=== PATIENT | female | born 1965 | race Caucasian/White ===

== ENCOUNTER 2017-05-18 06:42 | Day surgery (SDC) | payer MEDICAID ==
[2017-05-18 07:40] LABS: HEMOGLOBIN 15.1 g/dL (12-16); MCHC 34.3 g/dL (31.0-37.0); MCV 87.3 fL (80.0-100.0); MEAN PLATELET VOLUME 9.8 fL (7.4-10.4); RBC 5.04 10x6/uL (4.00-5.40); RDW 12.5 % (11.5-14.5)
[2017-05-18 07:53] LABS: CALC OSMOLALITY 288 mosm/kg (275-300); CALCIUM 9.8 mg/dL (8.5-10.1); CARBON DIOXIDE 26.1 mmol/L (21.0-32.0); CHLORIDE - SERUM 104 mmol/L (98-107); CREATININE - SERUM 0.8 mg/dL (0.6-1.3); GLUCOSE 210 mg/dL (74-106); POTASSIUM - SERUM 3.7 mmol/L (3.5-5.1); SODIUM 142 mmol/L (136-145); UREA NITROGEN 13 mg/dL (7-18); eGFR NON AFRICAN AMERICAN 80 mL/min (90-120)
[2017-05-18] MEDS ORDERED: TOUJEO SOL300 UNIT/1 SC (09:23)
[2017-05-18] MEDS ORDERED: LISINOPRIL-HCTZ1 T13 PO (09:25)
[2017-05-18] MEDS ORDERED: GLUCOPHAGE1000 MG PO (09:25)
[2017-05-18] MEDS ORDERED: VALIUM5 MG PO (09:26)
[2017-05-18] MEDS ORDERED: HYDROCODONE-APA1 TAB PO (09:26)
[2017-05-18] MEDS ORDERED: BAYER CHEWABLE81 MG PO (09:27)
[2017-05-18] MEDS ORDERED: IBUPROFEN800 MG PO (09:27)
[2017-05-18] MEDS ORDERED: PHENERGAN25 M1 PO (09:27)
[2017-05-18] MEDS ORDERED: OMEPRAZOLE20 M1 PO (09:28)
[2017-05-18] MEDS ORDERED: MULTIPLE VITAMI1 TA1 PO (09:28)
[2017-05-18 09:29] VITALS: BP 140/85; BMI 28.1
[2017-05-18] MEDS ORDERED: OXYCODONE HCL5 MG PO (11:10)
== END 2017-05-18 14:14 | disposition home or self-care (01) ==
LOC: D.OPS 06:42 → D.PAN 09:15 → D.OPS 09:15
PROVIDERS: Anesthesiology
DX: K81.1 Chronic cholecystitis (principal); K82.8 Other specified diseases of gallbladder; I10 Essential (primary) hypertension; E11.9 Type 2 diabetes mellitus without complications; Z01.812 Encounter for preprocedural laboratory examination

== ENCOUNTER → 2020-02-13 18:10 | Outpatient (CLI) | payer MEDICAID ==
[~2020-02-13 18:10] MED LIST: BAYER CHEWABLE81 MG PO; GLUCOPHAGE1000 MG PO; HYDROCODONE-APA1 TAB PO; IBUPROFEN800 MG PO; LISINOPRIL-HCTZ1 T13 PO; MULTIPLE VITAMI1 TA1 PO; OMEPRAZOLE20 M1 PO; OXYCODONE HCL5 MG PO; PHENERGAN25 M1 PO; TOUJEO SOL300 UNIT/1 SC; VALIUM5 MG PO
== END | disposition home or self-care (01) ==
LOC: D.LABREF 18:10
PROVIDERS: ATTEND Podiatrist Foot & Ankle Surgery
DX: B07.0 Plantar wart (principal)

== ENCOUNTER → 2020-04-30 17:38 | Outpatient (CLI) | payer MEDICAID | END | disposition home or self-care (01) | LOC: D.LABREF 17:38 | PROVIDERS: ATTEND Podiatrist Foot & Ankle Surgery | DX: L03.116 Cellulitis of left lower limb (principal) ==

== ENCOUNTER 2020-05-11 17:16 | Inpatient (IN) | payer MEDICARE ==
[~2020-05-11] VITALS: Ht 165.1 cm; Wt 77.1 kg
--- NOTE | 2020-05-11 17:20 | NUR ---
ALERT AND ORIENTED X4. DRESSINGS INTACT TO BILAT FEET. DENIES ANY PAIN OR DISCOMFORT AT THIS TIME. ENCOURAGED TO USE CALL LIGHT FOR ASSSIT
[2020-05-11 17:50] VITALS: BP 130/70; BMI 28.3
--- NOTE | 2020-05-11 19:10 | NUR ---
RECEIVED REPORT, DR BENITO AT BEDSIDE DOING THE DRESSING CHANGES, IV TO LEFT FOREARM PLACED ONE STICK, BED LOWEST POSITION, DENIES NEEDS, CALL LIGHT IN REACH, A&OX4
[2020-05-11 20:00] VITALS: BP 108/56
--- NOTE | 2020-05-11 23:55 | NUR ---
I have reviewed this patient and I concur with the Shift Assessment completed by the Licensed Practical Nurse today this shift.
[2020-05-12 04:00] VITALS: BP 118/55
[2020-05-12 05:19] LABS: BASOPHILS 0.1 % (0-2); EOSINOPHILS 3.1 % (0-7); HEMOGLOBIN 11.8 g/dL (12-16); IMMATURE GRANULOCYTES 0.1 % (0-5); LYMPHOCYTES 32.2 % (15-50); MCH 28.6 pg (26.0-34.0); MCHC 33.7 g/dL (31.0-37.0); MCV 84.7 fL (80.0-100.0); MEAN PLATELET VOLUME 9.1 fL (7.4-10.4); MONOCYTES 8.2 % (2-11); NEUTROPHILS 56.3 % (40-80); PLATELET COUNT 256 10x3/uL (130-400); RBC 4.13 10x6/uL (4.00-5.40); RDW 12.7 % (11.5-14.5); WBC 7.7 10x3/uL (4.8-10.8)
[2020-05-12 05:35] LABS: APTT 32.1 SECONDS (22.8-39.4); INR 1.02 (0.85-1.17); PROTIME 13.3 SECONDS (11.6-15.0)
[2020-05-12 05:41] LABS: ANION GAP 11.8 mmol/L (8-16); BILIRUBIN - TOTAL 0.2 mg/dL (0.2-1.3); CALCIUM 9.2 mg/dL (8.5-10.1); CARBON DIOXIDE 25.3 mmol/L (21.0-32.0); CREATININE - SERUM 1.1 mg/dL (0.6-1.3); MAGNESIUM - SERUM 1.7 mg/dL (1.8-2.4); POTASSIUM - SERUM 4.1 mmol/L (3.5-5.1); PROTEIN - SERUM 6.7 g/dL (6.4-8.2)
--- NOTE | 2020-05-12 08:00 | NUR ---
ALERT AND ORIENTED X4 DRESSINGS INTACT TO BLE. IV INTACT TO LUE S/L. DENIES ANY PAIN OR DISCOMFORT AND ENCOURAGED TO USE CALL LIGHT FOR ASSIT.
[2020-05-12 09:21] VITALS: BP 137/69
[2020-05-12 13:50] VITALS: Ht 165.1 cm; Wt 77.1 kg
[2020-05-12 14:25] VITALS: BP 155/73
--- NOTE | 2020-05-12 19:19 | NUR ---
RECEIVED REPORT, ASSUMED CARE, A&OX4, DENIES NEEDS, BED LOWEST POSITION, CALL LIGHT IN REACH, IV PATENT TO LFA PATENT INFUSING VANC AT THIS TIME, BREATHING EVEN UNLABORED
[2020-05-12 19:25] LABS: BILIRUBIN NEGATIVE (NEGATIVE); KETONE NEGATIVE (NEGATIVE); NITRITE NEGATIVE (NEGATIVE); UROBILINOGEN NORMAL mg/dL (< 2)
[2020-05-12 20:00] VITALS: BP 134/64
[2020-05-13] VITALS: BP 142/74
--- NOTE | 2020-05-13 03:00 | NUR ---
I have reviewed this patient and I concur with the Shift Assessment completed by the Licensed Practical Nurse today this shift.
[2020-05-13 04:00] VITALS: BP 134/76
[2020-05-13 06:51] LABS: BASOPHILS 0.4 % (0-2); EOSINOPHILS 3.1 % (0-7); HEMATOCRIT 37.1 % (36.0-48.0); HEMOGLOBIN 12.2 g/dL (12-16); IMMATURE GRANULOCYTES 0.1 % (0-5); LYMPHOCYTES 31.3 % (15-50); MCHC 32.9 g/dL (31.0-37.0); MCV 85.1 fL (80.0-100.0); MEAN PLATELET VOLUME 9.5 fL (7.4-10.4); NEUTROPHILS 56.1 % (40-80); PLATELET COUNT 262 10x3/uL (130-400); RBC 4.36 10x6/uL (4.00-5.40); RDW 12.8 % (11.5-14.5); WBC 6.8 10x3/uL (4.8-10.8)
[2020-05-13 07:04] LABS: CALCIUM 9.3 mg/dL (8.5-10.1); CARBON DIOXIDE 25.1 mmol/L (21.0-32.0); MAGNESIUM - SERUM 1.6 mg/dL (1.8-2.4); POTASSIUM - SERUM 4.1 mmol/L (3.5-5.1); VANCOMYCIN - TROUGH 12.7 ug/mL (10.0-20.0)
[2020-05-13 08:16] VITALS: BP 153/79
--- NOTE | 2020-05-13 09:00 | NUR ---
ALERT AND ORIENTED AND DENIES ANY APIN OR DISCOMFORT AT THIS TIME. DRESSINGS INTACT TO BLE WITH PEDAL PULSES NOTED. ENCOURAGED TO USE CALL LIGHT FOR ASSIST.LUNGS CTA WITH NO PERIPHERAL EDEMA NOTED.
[2020-05-13 12:36] VITALS: BP 169/77
[2020-05-13 16:43] VITALS: BP 141/99
[2020-05-13 20:00] VITALS: BP 116/77
--- NOTE | 2020-05-13 23:00 | NUR ---
REMOVED DRESSING AND PACKING ON LEFT GREAT TOE PER PHYSICIAN. EXPRESSED ONE SMALL DROP OF PUS FROM WOUND. CLEANED AND DRESSED WET TO DRY WITH BETADINE. REPORTED BACK TO DR. KEANE BY TEXT. NO OTHER NEEDS. WILL REASSESS AND CONTINUE TO MONITOR.
[2020-05-14] VITALS: BP 126/66
[2020-05-14 04:00] VITALS: BP 118/73
[2020-05-14 05:49] LABS: BASOPHILS 0.2 % (0-2); EOSINOPHILS 3.5 % (0-7); HEMATOCRIT 34.8 % (36.0-48.0); HEMOGLOBIN 11.5 g/dL (12-16); IMMATURE GRANULOCYTES 0.2 % (0-5); LYMPHOCYTES 41.8 % (15-50); MCV 84.9 fL (80.0-100.0); MEAN PLATELET VOLUME 9.3 fL (7.4-10.4); MONOCYTES 9.3 % (2-11); PLATELET COUNT 271 10x3/uL (130-400); RDW 12.8 % (11.5-14.5); WBC 5.7 10x3/uL (4.8-10.8)
[2020-05-14 06:02] LABS: ANION GAP 12.1 mmol/L (8-16); CALCIUM 8.6 mg/dL (8.5-10.1); CARBON DIOXIDE 26.8 mmol/L (21.0-32.0); CREATININE - SERUM 0.9 mg/dL (0.6-1.3); MAGNESIUM - SERUM 1.6 mg/dL (1.8-2.4); POTASSIUM - SERUM 3.9 mmol/L (3.5-5.1)
[2020-05-14 08:44] VITALS: BP 134/82
--- NOTE | 2020-05-14 09:48 | NUR ---
ORDER RECEIVED FOR PICC PLACEMENT ON PATIENT FOR HOME [facility]. ON ARRIVAL, PICC DISCUSSED WITH PATIENT AND WRITTEN CONSENT OBTAINED. USING SITE RITE ULTRASOUND, LEFT UPPER ARM BASILIC VEIN IDENTIFIED. STERILE PREP, DRAPE AND 1%XYLOCAINE TO AREA. VEIN ACCESSED AND DOUBLE LUMEN PICC INSERTED TO 43 CM. GOOD TRACING WITH 3CG. GOOD BLOOD RETURN AND FLUSHES EASILY. SITE DRESSED WITH STATLOCK, BIOPTACH AND TEGADERM DRESSING PLACED. PATIENT TOLERATED WELL WITH LESS THAN 5 ML. PLACEDMENT VERIFIED USING 3CG WITH RYTHM STRIP PLACED IN CHART .
--- NOTE | 2020-05-14 10:11 | NUR ---
PATIENT SITTING UP IN BED, NO S/SX OF DISTRESS, PT DRESSING CHANGED ON BOTH FEET THIS MORNING BY DR KEANE. IV CHANGED TO PICC IN LEFT UPPER ARM. NO NEEDS VOICED, CONTINUE WITH PLAN OF CARE
--- NOTE | 2020-05-14 10:40 | NUR ---
PT MAG IS 1.6, PER PROTOCOL, REPLETE MAG. ADMINISTERED 400MG OF MAG OX REDRAW WITH MORNING LABS
[2020-05-14 12:41] VITALS: BP 140/77
--- NOTE | 2020-05-14 14:24 | MORECARE ---
CASE MANAGEMENT DISCHARGE SUMMARY PATIENT: CATARINO FINN UNIT: [id number] ADM DATE: 05/11/20 AGE: 54 : 63 SEX: F ROOM/BED: D.2220 AUTHOR: DEVAN JAIN PHYSICIAN: REFERRING PHYSICIAN: GIACOMO KEANE DPM DATE OF SERVICE: 05/14/20 Discharge Plan Patient Name: CATARINO FINN Facility: [facility]:[place] : 1965 Planned Disposition: Home with Home Health Anticipated Discharge Date: Discharge Date: Expected LOS: Initial Reviewer: [email or web address] Initial Review Date: 05/11/2020 Generated: 05/14/20 3:23 pm Comments DCP- Discharge Planning Updated by [id number]: Jyoti Hernandez on 05/14/20 1:[address] Patient Name: CATARINO FINN Admission Status: Elective Accout number: [id number] Admission Date: 05-11-2020 : 1965 Admission Diagnosis: Attending: GIACOMO KEANE Current LOS: 3 Anticipated DC Date: Planned Disposition: Home with Home Health Primary Insurance: MEDICARE A & B Discharge Planning Comments: CM met with patient to complete initial dc planning assessment. CM educated patient on the CM role and verbal consent given by patient to complete assessment. Patient lives at home with her spouse where she is independent with her care. At discharge patient plans to return home and feels this is a safe discharge. Her sister Franny will be her truck driver heavy home. CM discussed availability of home health, rehab services, and medical equipment. She is current with [facility] in [place]. I called to let them know that she will be discharging with IV abx and will need to be start of care on THU. I spoke with Ila. Patient has a wheelchair and a shower chair at home. IDANIA signed. Patient denied known discharge needs at this time. CM will continue to follow and will assist as needed with dc plans/needs. Counter Control Operator: Jyoti Hernandez DCPIA - Discharge Planning Initial Assessment Updated by [id number]: Jyoti Hernandez on 05/14/20 2:19 pm * Is the patient Alert and Oriented? Yes * How many steps to enter\exit or inside your home? * PCP DR CASTILLO * Pharmacy [facility] * Preadmission Environment Home with Family * ADLs Independent * Equipment Rolling Walker Shower Chair Wheelchair * List name and contact numbers for known caregivers / representatives who currently or will assist patient after discharge: WILSON ( SPOUSE ) [phone] FRANNY FRANCO ( SISTER) [phone] * Verbal permission to speak to the caregivers and representatives has been obtained from the patient. N/A * Community resources currently utilized Home Health * Please name any agencies selected above. [employer] [facility] IN [place] * Additional services required to return to the preadmission environment? Yes * Can the patient safely return to the preadmission environment? Yes * Has this patient been hospitalized within the prior 30 days at any hospital? No Coverage Notice Reviewer: [id number] Florentino Hernandez Notice Issued Date-Time: 05/14/2020 14:10 Notice Type: Patient Choice Letter Notice Delivered To: Patient Relationship to Patient: Playground Monitor Name: Delivery Method: HAND - Hand Delivered Aneta Days: Prior Verbal Notification: Recipient Understood Notice: Yes Recipient Signature: Yes Med Rec Note Co-signed by Attending: Coverage Notice Comment: current with [facility] Patient Name: CATARINO FINN Page [id number] at 1424 All edits/amendments must be made on the electronic document DICTATION DATE: 05/14/201423 PHARMACY SPECIALIST: SENIA 05/14/201423 RPT#: [id number] DC DATE: STATUS: ADM IN [facility] [address] [place] [address] END OF REPORT
[2020-05-14 16:21] VITALS: BP 162/84
[2020-05-14 20:00] VITALS: BP 138/75
[2020-05-15] VITALS: BP 148/77
[2020-05-15 04:00] VITALS: BP 161/76
--- NOTE | 2020-05-15 06:34 | MORECARE ---
CASE MANAGEMENT DISCHARGE SUMMARY PATIENT: CATARINO FINN UNIT: [id number] ADM DATE: 05/11/20 AGE: 54 : 63 SEX: F ROOM/BED: D.2220 AUTHOR: DEVAN JAIN PHYSICIAN: REFERRING PHYSICIAN: GIACOMO KEANE DPM DATE OF SERVICE: 05/15/20 Discharge Plan Patient Name: CATARINO FINN Facility: [facility]:[place] : 1965 Planned Disposition: Home with Home Health Anticipated Discharge Date: Discharge Date: Expected LOS: Initial Reviewer: [email or web address] Initial Review Date: 05/11/2020 Generated: 05/15/20 7:34 am Comments DCP- Discharge Planning Updated by [email or web address]: Jyoti Hernandez on 05/14/20 1:[address] Patient Name: CATARINO FINN Admission Status: Elective Accout number: [id number] Admission Date: 05-11-2020 : 1965 Admission Diagnosis: Attending: GIACOMO KEANE Current LOS: 3 Anticipated DC Date: Planned Disposition: Home with Home Health Primary Insurance: MEDICARE A & B Discharge Planning Comments: CM met with patient to complete initial dc planning assessment. CM educated patient on the CM role and verbal consent given by patient to complete assessment. Patient lives at home with her spouse where she is independent with her care. At discharge patient plans to return home and feels this is a safe discharge. Her sister Franny will be her hack driver home. CM discussed availability of home health, rehab services, and medical equipment. She is current with [facility] in [place]. I called to let them know that she will be discharging with IV abx and will need to be start of care on THU. I spoke with Ila. Patient has a wheelchair and a shower chair at home. IDANIA signed. Patient denied known discharge needs at this time. CM will continue to follow and will assist as needed with dc plans/needs. Photo Studio Assistant: Jyoti Hernandez DCPIA - Discharge Planning Initial Assessment Updated by [id number]: Jyoti Hernandez on 05/14/20 2:19 pm * Is the patient Alert and Oriented? Yes * How many steps to enter\exit or inside your home? * PCP DR CASTILLO * Pharmacy [facility] * Preadmission Environment Home with Family * ADLs Independent * Equipment Rolling Walker Shower Chair Wheelchair * List name and contact numbers for known caregivers / representatives who currently or will assist patient after discharge: WILSON ( SPOUSE ) [phone] FRANNY FRANCO ( SISTER) [phone] * Verbal permission to speak to the caregivers and representatives has been obtained from the patient. N/A * Community resources currently utilized Home Health * Please name any agencies selected above. [facility] IN [place] * Additional services required to return to the preadmission environment? Yes * Can the patient safely return to the preadmission environment? Yes * Has this patient been hospitalized within the prior 30 days at any hospital? No External Providers External Provider: [facility] Next Contact Date: Service Request Date: Service Type: Resolution: Reviewer: Comments: Coverage Notice Reviewer: [id number] Florentino Hernandez Notice Issued Date-Time: 05/14/2020 14:10 Notice Type: Patient Choice Letter Notice Delivered To: Patient Relationship to Patient: Environmental Engineer Scientist Name: Delivery Method: HAND - Hand Delivered Aneta Days: Prior Verbal Notification: Recipient Understood Notice: Yes Recipient Signature: Yes Med Rec Note Co-signed by Attending: Coverage Notice Comment: current with [facility] Last DP export: 05/14/20 1:24 Patient Name: CATARINO FINN Page [phone] at 0634 All edits/amendments must be made on the electronic document DICTATION DATE: 05/15/20633 JET DYEING MACHINE TENDER: SENIA 05/15/20633 RPT#: [id number] DC DATE: STATUS: ADM IN [facility] [address] [place] [address] END OF REPORT
--- NOTE | 2020-05-15 07:50 | NUR ---
0700 BEDSIDE REPORT RECEIVED AWAKE ALERT IN BED LEFT FOOT DRESSING INTACT
[2020-05-15 08:22] VITALS: BP 156/88
--- NOTE | 2020-05-15 08:51 | MORECARE ---
CASE MANAGEMENT DISCHARGE SUMMARY PATIENT: CATARINO FINN UNIT: [id number] ADM DATE: 05/11/20 AGE: 54 : 63 SEX: F ROOM/BED: D.2220 AUTHOR: DEVAN JAIN PHYSICIAN: REFERRING PHYSICIAN: GIACOMO KEANE DPM DATE OF SERVICE: 05/15/20 Discharge Plan Patient Name: CATARINO FINN Facility: [facility]:[place] : 1965 Planned Disposition: Home with Home Health Anticipated Discharge Date: Discharge Date: Expected LOS: Initial Reviewer: [email or web address] Initial Review Date: 05/11/2020 Generated: 05/15/20 9:50 am Comments DCP- Discharge Planning Updated by [id number]: Jyoti Hernandez on 05/14/20 1:[address] Patient Name: CATARINO FINN Admission Status: Elective Accout number: [id number] Admission Date: 05-11-2020 : 1965 Admission Diagnosis: Attending: GIACOMO KEANE Current LOS: 3 Anticipated DC Date: Planned Disposition: Home with Home Health Primary Insurance: MEDICARE A & B Discharge Planning Comments: CM met with patient to complete initial dc planning assessment. CM educated patient on the CM role and verbal consent given by patient to complete assessment. Patient lives at home with her spouse where she is independent with her care. At discharge patient plans to return home and feels this is a safe discharge. Her sister Franny will be her intermodal truck driver home. CM discussed availability of home health, rehab services, and medical equipment. She is current with [facility] in [place]. I called to let them know that she will be discharging with IV abx and will need to be start of care on THU. I spoke with Ila. Patient has a wheelchair and a shower chair at home. IDANIA signed. Patient denied known discharge needs at this time. CM will continue to follow and will assist as needed with dc plans/needs. Contact Representative: Jyoti Hernandez DCPIA - Discharge Planning Initial Assessment Updated by [id number]: Jyoti Hernandez on 05/14/20 2:19 pm * Is the patient Alert and Oriented? Yes * How many steps to enter\exit or inside your home? * PCP DR CASTILLO * Pharmacy [facility] * Preadmission Environment Home with Family * ADLs Independent * Equipment Rolling Walker Shower Chair Wheelchair * List name and contact numbers for known caregivers / representatives who currently or will assist patient after discharge: WILSON ( SPOUSE ) [phone] FRANNY FRANCO ( SISTER) [phone] * Verbal permission to speak to the caregivers and representatives has been obtained from the patient. N/A * Community resources currently utilized Home Health * Please name any agencies selected above. [email or web address] [facility] IN [place] * Additional services required to return to the preadmission environment? Yes * Can the patient safely return to the preadmission environment? Yes * Has this patient been hospitalized within the prior 30 days at any hospital? No External Providers External Provider: [facility] Next Contact Date: Service Request Date: Service Type: Resolution: Reviewer: Comments: Coverage Notice Reviewer: [id number] Florentino Hernandez Notice Issued Date-Time: 05/14/2020 14:10 Notice Type: Patient Choice Letter Notice Delivered To: Patient Relationship to Patient: Fixing Machine Operator Name: Delivery Method: HAND - Hand Delivered Aneta Days: Prior Verbal Notification: Recipient Understood Notice: Yes Recipient Signature: Yes Med Rec Note Co-signed by Attending: Coverage Notice Comment: current with [facility] DP export: 05/15/20 5:35 Patient Name: CATARINO FINN Page [phone] at 0851 All edits/amendments must be made on the electronic document DICTATION DATE: 05/15/20849 SECURITY AUDITOR: SENIA 05/15/2050 RPT#: [id number] DC DATE: STATUS: ADM IN [facility] [address] [place] [address] END OF REPORT
--- NOTE | 2020-05-15 09:01 | MORECARE ---
CASE MANAGEMENT DISCHARGE SUMMARY PATIENT: CATARINO FINN UNIT: [id number] ADM DATE: 05/11/20 AGE: 54 : 63 SEX: F ROOM/BED: D.2220 AUTHOR: SUSY,DOC PHYSICIAN: REFERRING PHYSICIAN: GIACOMO KEANE DPM DATE OF SERVICE: 05/15/20 Discharge Plan Patient Name: CATARINO FINN Facility: [facility]:[place] : 1965 Planned Disposition: Home with Home Health Anticipated Discharge Date: Discharge Date: Expected LOS: Initial Reviewer: [email or web address] Initial Review Date: 05/11/2020 Generated: 05/15/20 10:00 am Comments DCP- Discharge Planning Updated by [id number]: Jyoti Hernandez on 05/15/20 7:[address] [employer] [employer] CALLED AND STATED THAT THE COST WOULD BE $1729.32 FOR SUPPLIES THEY CAN FINANCE IT FOR 18 MONTHS FOR A COST OF $97.00 PER MONTH I HAVE SENT THIS TO [facility], I AM WAITING FOR THEIR SANTANA. IMM SERVED AND EXPLAINED I HAVE EXPLAINED. ALL OF THIS TO THE PATIENT DCP- Discharge Planning Updated by [email or web address]: Jyoti Hernandez on 05/14/20 1:[address] Patient Name: CATARINO FINN Admission Status: Elective Accout number: [id number] Admission Date: 05-11-2020 : 1965 Admission Diagnosis: Attending: GIACOMO KEANE Current LOS: 3 Anticipated DC Date: Planned Disposition: Home with Home Health Primary Insurance: MEDICARE A & B Discharge Planning Comments: CM met with patient to complete initial dc planning assessment. CM educated patient on the CM role and verbal consent given by patient to complete assessment. Patient lives at home with her spouse where she is independent with her care. At discharge patient plans to return home and feels this is a safe discharge. Her sister Franny will be her team driver home. CM discussed availability of home health, rehab services, and medical equipment. She is current with [facility] in [place]. I called to let them know that she will be discharging with IV abx and will need to be start of care on THU. I spoke with Ila. Patient has a wheelchair and a shower chair at home. IDANIA signed. Patient denied known discharge needs at this time. CM will continue to follow and will assist as needed with dc plans/needs. Team Driver: Jyoti Hernandez DCPIA - Discharge Planning Initial Assessment Updated by [email or web address]: Jyoti Hernandez on 05/14/20 2:19 pm * Is the patient Alert and Oriented? Yes * How many steps to enter\exit or inside your home? * PCP DR CASTILLO * Pharmacy [facility] * Preadmission Environment Home with Family * ADLs Independent * Equipment Rolling Walker Shower Chair Wheelchair * List name and contact numbers for known caregivers / representatives who currently or will assist patient after discharge: WILSON ( SPOUSE ) [phone] FRANNY FRANCO ( SISTER) [phone] * Verbal permission to speak to the caregivers and representatives has been obtained from the patient. N/A * Community resources currently utilized Home Health * Please name any agencies selected above. [employer] [facility] IN [place] * Additional services required to return to the preadmission environment? Yes * Can the patient safely return to the preadmission environment? Yes * Has this patient been hospitalized within the prior 30 days at any hospital? No Coverage Notice Reviewer: [id number] Florentino Hernandez Notice Issued Date-Time: 05/14/2020 14:10 Notice Type: Patient Choice Letter Notice Delivered To: Patient Relationship to Patient: Community Living Coach Name: Delivery Method: HAND - Hand Delivered Aneta Days: Prior Verbal Notification: Recipient Understood Notice: Yes Recipient Signature: Yes Med Rec Note Co-signed by Attending: Coverage Notice Comment: current with [facility] Reviewer: [id number] Florentino Hernandez Notice Issued Date-Time: 05/15/2020 8:50 Notice Type: IM Discharge Notice Notice Delivered To: Patient Relationship to Patient: Community Living Coach Name: Delivery Method: HAND - Hand Delivered Aneta Days: Prior Verbal Notification: Recipient Understood Notice: Yes Recipient Signature: Yes Med Rec Note Co-signed by Attending: Coverage Notice Comment: IMM SERVED Last DP export: 05/15/20 7:51 Patient Name: CATARINO FINN Page 45711 at 0901 All edits/amendments must be made on the electronic document DICTATION DATE: 05/15/20 0900 CHAIN OFFBEARER: DM 05/15/20899 RPT#: [id number] DC DATE: STATUS: ADM IN [facility] [address] [place] [address] END OF REPORT
[2020-05-15 10:20] LABS: HEMATOCRIT 38.1 % (36.0-48.0); HEMOGLOBIN 12.9 g/dL (12-16); MCHC 33.9 g/dL (31.0-37.0); MCV 85.6 fL (80.0-100.0); MEAN PLATELET VOLUME 8.9 fL (7.4-10.4); NEUTROPHILS 60.6 % (40-80); PLATELET COUNT 276 10x3/uL (130-400); RBC 4.45 10x6/uL (4.00-5.40); WBC 6.3 10x3/uL (4.8-10.8)
[2020-05-15 10:36] LABS: ANION GAP 11.1 mmol/L (8-16); CALCIUM 9.5 mg/dL (8.5-10.1); CARBON DIOXIDE 28.9 mmol/L (21.0-32.0); CREATININE - SERUM 1.1 mg/dL (0.6-1.3); MAGNESIUM - SERUM 1.7 mg/dL (1.8-2.4); VANCOMYCIN - TROUGH 34.1 ug/mL (10.0-20.0)
[2020-05-15 12:38] LABS: BASOPHILS 0.2 % (0-2); EOSINOPHILS 4.6 % (0-7)
[2020-05-15 12:46] VITALS: BP 164/94
--- NOTE | 2020-05-15 14:13 | MORECARE ---
CASE MANAGEMENT DISCHARGE SUMMARY PATIENT: CATARINO FINN UNIT: [id number] ADM DATE: 05/11/20 AGE: 54 : 63 SEX: F ROOM/BED: D.2220 AUTHOR: SUSY,DOC PHYSICIAN: REFERRING PHYSICIAN: GIACOMO KEANE DPM DATE OF SERVICE: 05/15/20 Discharge Plan Patient Name: CATARINO FNIN Facility: [facility]:[place] : 1965 Planned Disposition: Home with Home Health Anticipated Discharge Date: Discharge Date: Expected LOS: Initial Reviewer: [id number] Initial Review Date: 05/11/2020 Generated: 05/15/20 3:12 pm Comments DCP- Discharge Planning Updated by [email or web address]: Jyoti Hernandez on 05/15/20 7:[address] [employer] [employer] CALLED AND STATED THAT THE COST WOULD BE $1729.32 FOR SUPPLIES THEY CAN FINANCE IT FOR 18 MONTHS FOR A COST OF $97.00 PER MONTH I HAVE SENT THIS TO [facility], I AM WAITING FOR THEIR SANTANA. IMM SERVED AND EXPLAINED I HAVE EXPLAINED. ALL OF THIS TO THE PATIENT DCP- Discharge Planning Updated by [id number]: Jyoti Hernandez on 05/14/20 1:[address] Patient Name: CATARINO FINN Admission Status: Elective Accout number: [id number] Admission Date: 05-11-2020 : 1965 Admission Diagnosis: Attending: GIACOMO KEANE Current LOS: 3 Anticipated DC Date: Planned Disposition: Home with Home Health Primary Insurance: MEDICARE A & B Discharge Planning Comments: CM met with patient to complete initial dc planning assessment. CM educated patient on the CM role and verbal consent given by patient to complete assessment. Patient lives at home with her spouse where she is independent with her care. At discharge patient plans to return home and feels this is a safe discharge. Her sister Franny will be her otr tanker truck driver home. CM discussed availability of home health, rehab services, and medical equipment. She is current with [facility] in [place]. I called to let them know that she will be discharging with IV abx and will need to be start of care on THU. I spoke with Ila. Patient has a wheelchair and a shower chair at home. IDANIA signed. Patient denied known discharge needs at this time. CM will continue to follow and will assist as needed with dc plans/needs. Ammunition Assembly Laborer: Jyoti Hernandez DCPIA - Discharge Planning Initial Assessment Updated by [id number]: Jyoti Hernandez on 05/14/20 2:19 pm * Is the patient Alert and Oriented? Yes * How many steps to enter\exit or inside your home? * PCP DR CASTILLO * Pharmacy [facility] * Preadmission Environment Home with Family * ADLs Independent * Equipment Rolling Walker Shower Chair Wheelchair * List name and contact numbers for known caregivers / representatives who currently or will assist patient after discharge: WILSON ( SPOUSE ) [phone] FRANNY FRANCO ( SISTER) [phone] * Verbal permission to speak to the caregivers and representatives has been obtained from the patient. N/A * Community resources currently utilized Home Health * Please name any agencies selected above. [employer] [facility] IN [place] * Additional services required to return to the preadmission environment? Yes * Can the patient safely return to the preadmission environment? Yes * Has this patient been hospitalized within the prior 30 days at any hospital? No Coverage Notice Reviewer: [id number] Florentino Hernandez Notice Issued Date-Time: 05/14/2020 14:10 Notice Type: Patient Choice Letter Notice Delivered To: Patient Relationship to Patient: Temporary Data Entry Clerk Name: Delivery Method: HAND - Hand Delivered Aneta Days: Prior Verbal Notification: Recipient Understood Notice: Yes Recipient Signature: Yes Med Rec Note Co-signed by Attending: Coverage Notice Comment: current with [facility] Reviewer: [id number] Florentino Hernandez Notice Issued Date-Time: 05/15/2020 8:50 Notice Type: IM Discharge Notice Notice Delivered To: Patient Relationship to Patient: Temporary Data Entry Clerk Name: Delivery Method: HAND - Hand Delivered Aneta Days: Prior Verbal Notification: Recipient Understood Notice: Yes Recipient Signature: Yes Med Rec Note Co-signed by Attending: Coverage Notice Comment: IMM SERVED Last DP export: 05/15/20 8:01 Patient Name: CATARINO FINN Page [id number] at 1413 All edits/amendments must be made on the electronic document DICTATION DATE: 05/15/20 1412 WOOD GLUER: DM 05/15/20 141 RPT#: [id number] DC DATE: STATUS: ADM IN [facility] [address] [place] [address] END OF REPORT
--- NOTE | 2020-05-15 14:30 | MORECARE ---
CASE MANAGEMENT DISCHARGE SUMMARY PATIENT: CATARINO FINN UNIT: [id number] ADM DATE: 05/11/20 AGE: 54 : 63 SEX: F ROOM/BED: D.2220 AUTHOR: SUSY,DOC PHYSICIAN: REFERRING PHYSICIAN: GIACOMO KEANE DPM DATE OF SERVICE: 05/15/20 Discharge Plan Patient Name: CATARINO FINN Facility: [facility]:[place] : 1965 Planned Disposition: Home with Home Health Anticipated Discharge Date: Discharge Date: Expected LOS: Initial Reviewer: [email or web address] Initial Review Date: 05/11/2020 Generated: 05/15/20 3:29 pm Comments DCP- Discharge Planning Updated by [email or web address]: Jyoti Hernandez on 05/15/20 1:[address] I spoke with Ila at [facility] in [place] they will be there at 0930 tomorrow to start care. I will let patient know DCP- Discharge Planning Updated by [email or web address]: Jyoti Hernandez on 05/15/20 1:[address] I spoke with Kerrie Aviles again and they stated that they spoke with the industrial organization manager and they would do 1010.20 and do 15 month payment plan at $68.00 per month Padmini Avilez quoted me $3.60 per week for all of it. I questioned both Kerrie Aviles & Raghav on the scruggs difference both companies assure me they are correct. I have given my card to the patient and explained to her that she needed to call me if she received a bill larger that what she is quoted. Dr Keane also aware. Patient will get her last does today. Raghav will come and teach and [facility], then [facility] will do start of care tomorrow CM to follow and assist as needed DCP- Discharge Planning Updated by [id number]: Jyoti Hernandez on 05/15/20 7:[address] KERRIE AVILES CALLED AND STATED THAT THE COST WOULD BE $1729.32 FOR SUPPLIES THEY CAN FINANCE IT FOR 18 MONTHS FOR A COST OF $97.00 PER MONTH I HAVE SENT THIS TO [facility], I AM WAITING FOR THEIR SCRUGGS. IMM SERVED AND EXPLAINED I HAVE EXPLAINED. ALL OF THIS TO THE PATIENT DCP- Discharge Planning Updated by [email or web address]: Jyoti Hernandez on 05/14/20 1:[address] Patient Name: CATARINO FINN Admission Status: Elective Accout number: [id number] Admission Date: 05-11-2020 : 1965 Admission Diagnosis: Attending: GIACOMO KEANE Current LOS: 3 Anticipated DC Date: Planned Disposition: Home with Home Health Primary Insurance: MEDICARE A & B Discharge Planning Comments: CM met with patient to complete initial dc planning assessment. CM educated patient on the CM role and verbal consent given by patient to complete assessment. Patient lives at home with her spouse where she is independent with her care. At discharge patient plans to return home and feels this is a safe discharge. Her sister Franny will be her lifter driver home. CM discussed availability of home health, rehab services, and medical equipment. She is current with [facility] in [place]. I called to let them know that she will be discharging with IV abx and will need to be start of care on THU. I spoke with Ila. Patient has a wheelchair and a shower chair at home. IDANIA signed. Patient denied known discharge needs at this time. CM will continue to follow and will assist as needed with dc plans/needs. Funeral Location Manager: Jyoti Hernandez DCPIA - Discharge Planning Initial Assessment Updated by [id number]: Jyoti Hernandez on 05/14/20 2:19 pm * Is the patient Alert and Oriented? Yes * How many steps to enter\exit or inside your home? * PCP DR CASTILLO * Pharmacy [facility] * Preadmission Environment Home with Family * ADLs Independent * Equipment Rolling Walker Shower Chair Wheelchair * List name and contact numbers for known caregivers / representatives who currently or will assist patient after discharge: WILSON ( SPOUSE ) [phone] FRANNY FRANCO ( SISTER) [phone] * Verbal permission to speak to the caregivers and representatives has been obtained from the patient. N/A * Community resources currently utilized Home Health * Please name any agencies selected above. [facility] IN [place] * Additional services required to return to the preadmission environment? Yes * Can the patient safely return to the preadmission environment? Yes * Has this patient been hospitalized within the prior 30 days at any hospital? No Coverage Notice Reviewer: [id number] Florentino Hernandez Notice Issued Date-Time: 05/14/2020 14:10 Notice Type: Patient Choice Letter Notice Delivered To: Patient Relationship to Patient: Chiropractor Assistant Name: Delivery Method: HAND - Hand Delivered Aneta Days: Prior Verbal Notification: Recipient Understood Notice: Yes Recipient Signature: Yes Med Rec Note Co-signed by Attending: Coverage Notice Comment: current with [facility] Reviewer: [id number] Florentino Hernandez Notice Issued Date-Time: 05/15/2020 8:50 Notice Type: IM Discharge Notice Notice Delivered To: Patient Relationship to Patient: Chiropractor Assistant Name: Delivery Method: HAND - Hand Delivered Aneta Days: Prior Verbal Notification: Recipient Understood Notice: Yes Recipient Signature: Yes Med Rec Note Co-signed by Attending: Coverage Notice Comment: IMM SERVED Last DP export: 05/15/20 1:13 Patient Name: CATARINO FINN Page [id number] at 1430 All edits/amendments must be made on the electronic document DICTATION DATE: 05/15/201428 POULTRY PINNER: SENIA 05/15/20 142 RPT#: [id number] DC DATE: STATUS: ADM IN [facility] [address] [place] [address] END OF REPORT
--- NOTE | 2020-05-15 14:48 | MORECARE ---
CASE MANAGEMENT DISCHARGE SUMMARY PATIENT: CATARINO FINN UNIT: [id number] ADM DATE: 05/11/20 AGE: 54 : 63 SEX: F ROOM/BED: D.2220 AUTHOR: SUSY,DOC PHYSICIAN: REFERRING PHYSICIAN: GIACOMO KEANE DPM DATE OF SERVICE: 05/15/20 Discharge Plan Patient Name: CATARINO FINN Facility: [facility]:[place] : 1965 Planned Disposition: Home with Home Health Anticipated Discharge Date: Discharge Date: Expected LOS: Initial Reviewer: [email or web address] Initial Review Date: 05/11/2020 Generated: 05/15/20 3:47 pm Comments DCP- Discharge Planning Updated by [email or web address]: Jyoti Hernandez on 05/15/20 1:[address] I spoke with someone again about the scruggs and they did not include the supply cost. which is 15.00 per day. I explained to the patient and sister and the sister will cover the cost of that. I called Padmini Avilez to call the sister for a payment plan for the TOTAL COST of services. DCP- Discharge Planning Updated by [id number]: Jyoti Hernandez on 05/15/20 1:[address] I spoke with Ila at [facility] in [place] they will be there at 0930 tomorrow to start care. I will let patient know DCP- Discharge Planning Updated by [email or web address]: Jyoti Hernandez on 05/15/20 1:[address] I spoke with Kerrie Aviles again and they stated that they spoke with the state manager and they would do 1010.20 and do 15 month payment plan at $68.00 per month Padmini Avilez quoted me $3.60 per week for all of it. I questioned both Kerrie Aviles & Raghav on the scruggs difference both companies assure me they are correct. I have given my card to the patient and explained to her that she needed to call me if she received a bill larger that what she is quoted. Dr Keane also aware. Patient will get her last does today. Raghav will come and teach and deliver the meds to her home tonight, then Mag will do start of care tomorrow CM to follow and assist as needed DCP- Discharge Planning Updated by [id number]: yJoti Hernandez on 05/15/20 7:[address] KERRIE AVILES CALLED AND STATED THAT THE COST WOULD BE $1729.32 FOR SUPPLIES THEY CAN FINANCE IT FOR 18 MONTHS FOR A COST OF $97.00 PER MONTH I HAVE SENT THIS TO [facility], I AM WAITING FOR THEIR SCRUGGS. IMM SERVED AND EXPLAINED I HAVE EXPLAINED. ALL OF THIS TO THE PATIENT DCP- Discharge Planning Updated by [id number]: Jyoti Hernandez on 05/14/20 1:[address] Patient Name: CATARINO FINN Admission Status: Elective Accout number: [id number] Admission Date: 05-11-2020 : 1965 Admission Diagnosis: Attending: GIACOMO KEANE Current LOS: 3 Anticipated DC Date: Planned Disposition: Home with Home Health Primary Insurance: MEDICARE A & B Discharge Planning Comments: CM met with patient to complete initial dc planning assessment. CM educated patient on the CM role and verbal consent given by patient to complete assessment. Patient lives at home with her spouse where she is independent with her care. At discharge patient plans to return home and feels this is a safe discharge. Her sister Franny will be her locomotive driver home. CM discussed availability of home health, rehab services, and medical equipment. She is current with [facility] in [place]. I called to let them know that she will be discharging with IV abx and will need to be start of care on THU. I spoke with Ila. Patient has a wheelchair and a shower chair at home. IDANIA signed. Patient denied known discharge needs at this time. CM will continue to follow and will assist as needed with dc plans/needs. Supervisor Dog License Officer: Jyoti Hernandez DCPIA - Discharge Planning Initial Assessment Updated by [id number]: Jyoti Hernandez on 05/14/20 2:19 pm * Is the patient Alert and Oriented? Yes * How many steps to enter\exit or inside your home? * PCP DR CASTILLO * Pharmacy [facility] * Preadmission Environment Home with Family * ADLs Independent * Equipment Rolling Walker Shower Chair Wheelchair * List name and contact numbers for known caregivers / representatives who currently or will assist patient after discharge: WILSON ( SPOUSE ) [phone] FRANNY FRANCO ( SISTER) [phone] * Verbal permission to speak to the caregivers and representatives has been obtained from the patient. N/A * Community resources currently utilized Home Health * Please name any agencies selected above. [facility] [place] * Additional services required to return to the preadmission environment? Yes * Can the patient safely return to the preadmission environment? Yes * Has this patient been hospitalized within the prior 30 days at any hospital? No Coverage Notice Reviewer: [id number] Florentino Hernandez Notice Issued Date-Time: 05/14/2020 14:10 Notice Type: Patient Choice Letter Notice Delivered To: Patient Relationship to Patient: Cue Worker Name: Delivery Method: HAND - Hand Delivered Aneta Days: Prior Verbal Notification: Recipient Understood Notice: Yes Recipient Signature: Yes Med Rec Note Co-signed by Attending: Coverage Notice Comment: current with [facility] Reviewer: [id number] Florentino Hernandez Notice Issued Date-Time: 05/15/2020 8:50 Notice Type: IM Discharge Notice Notice Delivered To: Patient Relationship to Patient: Cue Worker Name: Delivery Method: HAND - Hand Delivered Aneta Days: Prior Verbal Notification: Recipient Understood Notice: Yes Recipient Signature: Yes Med Rec Note Co-signed by Attending: Coverage Notice Comment: IMM SERVED Last DP export: 05/15/20 1:30 Patient Name: CATARINO FINN Page [id number] at 1448 All edits/amendments must be made on the electronic document DICTATION DATE: 05/15/201446 GOLF COURSE STARTER: SENIA 05/15/201446 RPT#: [id number] DC DATE: STATUS: ADM IN [facility] [address] [place] [address] END OF REPORT
--- NOTE | 2020-05-15 14:59 | MORECARE ---
CASE MANAGEMENT DISCHARGE SUMMARY PATIENT: CATARINO FINN UNIT: [id number] ADM DATE: 05/11/20 AGE: 54 : 63 SEX: F ROOM/BED: D.2220 AUTHOR: DEVAN JAIN PHYSICIAN: REFERRING PHYSICIAN: GIACOMO KEANE DPM DATE OF SERVICE: 05/15/20 Discharge Plan Patient Name: CATARINO FINN Facility: [facility]:[place] : 1965 Planned Disposition: Home with Home Health Anticipated Discharge Date: Discharge Date: Expected LOS: Initial Reviewer: [id number] Initial Review Date: 05/11/2020 Generated: 05/15/20 3:58 pm Comments DCP- Discharge Planning Updated by [email or web address]: Jyoti Hernandez on 05/15/20 1:[address] Per Padmini Avilez, they will call do a hardship for her and cover those cost because of the missed cost on their end DCP- Discharge Planning Updated by [email or web address]: Jyoti Hernandez on 05/15/20 1:[address] I spoke with someone again about the scruggs and they did not include the supply cost. which is 15.00 per day. I explained to the patient and sister and the sister will cover the cost of that. I called Padmini Avilez to call the sister for a payment plan for the TOTAL COST of services. DCP- Discharge Planning Updated by [email or web address]: Jyoti Hernandez on 05/15/20 1:[address] I spoke with Ila jerry [facility] in [place] they will be there at 0930 tomorrow to start care. I will let patient know DCP- Discharge Planning Updated by [id number]: Jyoti Hernandez on 05/15/20 1:[address] I spoke with Kerrie Aviles again and they stated that they spoke with the assistant production manager and they would do 1010.20 and do 15 month payment plan at $68.00 per month Padmini Avilez quoted me $3.60 per week for all of it. I questioned both [place] & Raghav on the scruggs difference both companies assure me they are correct. I have given my card to the patient and explained to her that she needed to call me if she received a bill larger that what she is quoted. Dr Keane also aware. Patient will get her last does today. Raghav will come and teach and deliver the meds to her home [facility], then [facility] will do start of care tomorrow CM to follow and assist as needed DCP- Discharge Planning Updated by [id number]: Jyoti Hernandez on 05/15/20 7:[address] KERRIE AVILES CALLED AND STATED THAT THE COST WOULD BE $1729.32 FOR SUPPLIES THEY CAN FINANCE IT FOR 18 MONTHS FOR A COST OF $97.00 PER MONTH I HAVE SENT THIS TO [facility], I AM WAITING FOR THEIR SCRUGGS. IMM SERVED AND EXPLAINED I HAVE EXPLAINED. ALL OF THIS TO THE PATIENT DCP- Discharge Planning Updated by [email or web address]: Jyoti Hernandez on 05/14/20 1:[address] Patient Name: CATARINO FINN Admission Status: Elective Accout number: [id number] Admission Date: 05-11-2020 : 1965 Admission Diagnosis: Attending: GIACOMO KEANE Current LOS: 3 Anticipated DC Date: Planned Disposition: Home with Home Health Primary Insurance: MEDICARE A & B Discharge Planning Comments: CM met with patient to complete initial dc planning assessment. CM educated patient on the CM role and verbal consent given by patient to complete assessment. Patient lives at home with her spouse where she is independent with her care. At discharge patient plans to return home and feels this is a safe discharge. Her sister Franny will be her sweeper driver home. CM discussed availability of home health, rehab services, and medical equipment. She is current with [facility] in [place]. I called to let them know that she will be discharging with IV abx and will need to be start of care on THU. I spoke with Ila. Patient has a wheelchair and a shower chair at home. IDANIA signed. Patient denied known discharge needs at this time. CM will continue to follow and will assist as needed with dc plans/needs. Ball Rolling Machine Operator: Jyoti Hernandez DCPIA - Discharge Planning Initial Assessment Updated by [id number]: Jyoti Hernandez on 05/14/20 2:19 pm * Is the patient Alert and Oriented? Yes * How many steps to enter\exit or inside your home? * PCP DR CASTILLO * Pharmacy [facility] * Preadmission Environment Home with Family * ADLs Independent * Equipment Rolling Walker Shower Chair Wheelchair * List name and contact numbers for known caregivers / representatives who currently or will assist patient after discharge: WILSON ( SPOUSE ) [phone] FRANNY FRANCO ( SISTER) [phone] * Verbal permission to speak to the caregivers and representatives has been obtained from the patient. N/A * Community resources currently utilized Home Health * Please name any agencies selected above. [facility] [place] * Additional services required to return to the preadmission environment? Yes * Can the patient safely return to the preadmission environment? Yes * Has this patient been hospitalized within the prior 30 days at any hospital? No Coverage Notice Reviewer: [id number] Florentino Hernandez Notice Issued Date-Time: 05/14/2020 14:10 Notice Type: Patient Choice Letter Notice Delivered To: Patient Relationship to Patient: Veneer Patcher Name: Delivery Method: HAND - Hand Delivered Aneta Days: Prior Verbal Notification: Recipient Understood Notice: Yes Recipient Signature: Yes Med Rec Note Co-signed by Attending: Coverage Notice Comment: current with [facility] Reviewer: [id number] Hernandez Notice Issued Date-Time: 05/15/2020 8:50 Notice Type: IM Discharge Notice Notice Delivered To: Patient Relationship to Patient: Veneer Patcher Name: Delivery Method: HAND - Hand Delivered Aneta Days: Prior Verbal Notification: Recipient Understood Notice: Yes Recipient Signature: Yes Med Rec Note Co-signed by Attending: Coverage Notice Comment: IMM SERVED Last DP export: 05/15/20 1:48 Patient Name: CATARINO FINN Page [phone] at 1459 All edits/amendments must be made on the electronic document DICTATION DATE: 05/15/201457 ACCOUNTING FILE CLERK: SENIA 05/15/201457 RPT#: [id number] DC DATE: STATUS: ADM IN [facility] [address] [place] [address] END OF REPORT
--- NOTE | 2020-05-15 15:11 | MORECARE ---
CASE MANAGEMENT DISCHARGE SUMMARY PATIENT: CATARINO FINN UNIT: [id number] ADM DATE: 05/11/20 AGE: 54 : 63 SEX: F ROOM/BED: D.2220 AUTHOR: DEVAN JAIN PHYSICIAN: REFERRING PHYSICIAN: GIACOMO KEANE DPM DATE OF SERVICE: 05/15/20 Discharge Plan Patient Name: CATARINO FINN Facility: [facility]:[place] : 1965 Planned Disposition: Home with Home Health Anticipated Discharge Date: Discharge Date: Expected LOS: Initial Reviewer: [id number] Initial Review Date: 05/11/2020 Generated: 05/15/20 4:10 pm Comments DCP- Discharge Planning Updated by [id number]: Jyoti Hernandez on 05/15/20 1:[address] Per Padmini Avilez, they will call do a hardship for her and cover those cost because of the missed cost on their end DCP- Discharge Planning Updated by [id number]: Jyoti Hernandez on 05/15/20 1:[address] I spoke with someone again about the scruggs and they did not include the supply cost. which is 15.00 per day. I explained to the patient and sister and the sister will cover the cost of that. I called Padmini Avilez to call the sister for a payment plan for the TOTAL COST of services. DCP- Discharge Planning Updated by [id number]: Jyoti Hernandez on 05/15/20 1:[address] I spoke with Ila jerry [facility] in [place] they will be there at 0930 tomorrow to start care. I will let patient know DCP- Discharge Planning Updated by [id number]: Jyoti Hernandez on 05/15/20 1:[address] I spoke with Kerrie Aviles again and they stated that they spoke with the assistant clinical nurse manager and they would do 1010.20 and do 15 month payment plan at $68.00 per month Padmini Avilez quoted me $3.60 per week for all of it. I questioned both [place] & Raghav on the scruggs difference both companies assure me they are correct. I have given my card to the patient and explained to her that she needed to call me if she received a bill larger that what she is quoted. Dr Keane also aware. Patient will get her last does today. Raghav will come and teach and deliver the meds to her home [facility], then [facility] will do start of care tomorrow CM to follow and assist as needed DCP- Discharge Planning Updated by [email or web address]: Jyoti Hernandez on 05/15/20 7:[address] KERRIE AVILES CALLED AND STATED THAT THE COST WOULD BE $1729.32 FOR SUPPLIES THEY CAN FINANCE IT FOR 18 MONTHS FOR A COST OF $97.00 PER MONTH I HAVE SENT THIS TO [facility], I AM WAITING FOR THEIR SCRUGGS. IMM SERVED AND EXPLAINED I HAVE EXPLAINED. ALL OF THIS TO THE PATIENT DCP- Discharge Planning Updated by [id number]: Jyoti Hernandez on 05/14/20 1:[address] Patient Name: CATARINO FINN Admission Status: Elective Accout number: [id number] Admission Date: 05-11-2020 : 1965 Admission Diagnosis: Attending: GIACOMO KEANE Current LOS: 3 Anticipated DC Date: Planned Disposition: Home with Home Health Primary Insurance: MEDICARE A & B Discharge Planning Comments: CM met with patient to complete initial dc planning assessment. CM educated patient on the CM role and verbal consent given by patient to complete assessment. Patient lives at home with her spouse where she is independent with her care. At discharge patient plans to return home and feels this is a safe discharge. Her sister Franny will be her route driver coin machines home. CM discussed availability of home health, rehab services, and medical equipment. She is current with [facility] in [place]. I called to let them know that she will be discharging with IV abx and will need to be start of care on THU. I spoke with Ila. Patient has a wheelchair and a shower chair at home. IDANIA signed. Patient denied known discharge needs at this time. CM will continue to follow and will assist as needed with dc plans/needs. Tube Splicer: Jyoti Hernandez DCPIA - Discharge Planning Initial Assessment Updated by [id number]: Jyoti Hernandez on 05/14/20 2:19 pm * Is the patient Alert and Oriented? Yes * How many steps to enter\exit or inside your home? * PCP DR CASTILLO * Pharmacy [facility] * Preadmission Environment Home with Family * ADLs Independent * Equipment Rolling Walker Shower Chair Wheelchair * List name and contact numbers for known caregivers / representatives who currently or will assist patient after discharge: WILSON ( SPOUSE ) [phone] FRANNY FRANCO ( SISTER) [phone] * Verbal permission to speak to the caregivers and representatives has been obtained from the patient. N/A * Community resources currently utilized Home Health * Please name any agencies selected above. [facility] [place] * Additional services required to return to the preadmission environment? Yes * Can the patient safely return to the preadmission environment? Yes * Has this patient been hospitalized within the prior 30 days at any hospital? No External Providers [facility] Next Contact Date: Service Request Date: Service Type: Resolution: Reviewer: Comments: Coverage Notice Reviewer: [id number] Florentino Hernandez Notice Issued Date-Time: 05/14/2020 14:10 Notice Type: Patient Choice Letter Notice Delivered To: Patient Relationship to Patient: Market Relationship Manager Name: Delivery Method: HAND - Hand Delivered Aneta Days: Prior Verbal Notification: Recipient Understood Notice: Yes Recipient Signature: Yes Med Rec Note Co-signed by Attending: Coverage Notice Comment: current with [facility] Reviewer: [id number] Florentino Hernandez Notice Issued Date-Time: 05/15/2020 8:50 Notice Type: IM Discharge Notice Notice Delivered To: Patient Relationship to Patient: Market Relationship Manager Name: Delivery Method: HAND - Hand Delivered Aneta Days: Prior Verbal Notification: Recipient Understood Notice: Yes Recipient Signature: Yes Med Rec Note Co-signed by Attending: Coverage Notice Comment: IMM SERVED Last DP export: 05/15/20 1:59 Patient Name: CATARINO FINN Page [phone] at 1511 All edits/amendments must be made on the electronic document DICTATION DATE: 05/15/201509 STEAM SHOVELMAN: SENIA 05/15/201509 RPT#: [id number] DC DATE: STATUS: ADM IN [facility] [address] [place] [address] END OF REPORT
--- NOTE | 2020-05-16 09:10 | MORECARE ---
CASE MANAGEMENT DISCHARGE SUMMARY PATIENT: CATARINO FINN UNIT: [id number] ADM DATE: 05/11/20 AGE: 54 : 63 SEX: F ROOM/BED: D.2220 AUTHOR: SUSY,DOC PHYSICIAN: REFERRING PHYSICIAN: GIACOMO KEANE DPM DATE OF SERVICE: 05/16/20 Discharge Plan Patient Name: CATARINO FINN Facility: [facility]:[place] : 1965 Planned Disposition: Home with Home Health Anticipated Discharge Date: Discharge Date: 05/15/2020 Expected LOS: Initial Reviewer: [id number] Initial Review Date: 05/11/2020 Generated: 05/16/20 10:09 am Comments DCP- Discharge Planning Updated by [email or web address]: Joyti Hernandez on 05/15/20 1:[address] Per Padmini Avilez, they will call do a hardship for her and cover those cost because of the missed cost on their end DCP- Discharge Planning Updated by [email or web address]: Jyoti Hernandez on 05/15/20 1:[address] I spoke with someone again about the scruggs and they did not include the supply cost. which is 15.00 per day. I explained to the patient and sister and the sister will cover the cost of that. I called Padmini Avilez to call the sister for a payment plan for the TOTAL COST of services. DCP- Discharge Planning Updated by [id number]: Jyoti Hernandez on 05/15/20 1:[address] I spoke with Ila jerry [facility] in [place] they will be there at 0930 tomorrow to start care. I will let patient know DCP- Discharge Planning Updated by [email or web address]: Jyoti Hernandez on 05/15/20 1:[address] I spoke with Kerrie Aviles again and they stated that they spoke with the clinic manager and they would do 1010.20 and do 15 month payment plan at $68.00 per month Padmini Avilez quoted me $3.60 per week for all of it. I questioned both Kerrie Aviles & Raghav on the scruggs difference both companies assure me they are correct. I have given my card to the patient and explained to her that she needed to call me if she received a bill larger that what she is quoted. Dr Keane also aware. Patient will get her last does today. Raghav will come and teach and deliver the meds to her home [place], then [facility] will do start of care tomorrow CM to follow and assist as needed DCP- Discharge Planning Updated by [email or web address]: Jyoti Hernandez on 05/15/20 7:[address] KERRIE AVILES CALLED AND STATED THAT THE COST WOULD BE $1729.32 FOR SUPPLIES THEY CAN FINANCE IT FOR 18 MONTHS FOR A COST OF $97.00 PER MONTH I HAVE SENT THIS TO [facility], I AM WAITING FOR THEIR SCRUGGS. IMM SERVED AND EXPLAINED I HAVE EXPLAINED. ALL OF THIS TO THE PATIENT DCP- Discharge Planning Updated by [email or web address]: Jyoti Hernandez on 05/14/20 1:[address] Patient Name: CATARINO FINN Admission Status: Elective Accout number: [id number] Admission Date: 05-11-2020 : 1965 Admission Diagnosis: Attending: GIACOMO KEANE Current LOS: 3 Anticipated DC Date: Planned Disposition: Home with Home Health Primary Insurance: MEDICARE A & B Discharge Planning Comments: CM met with patient to complete initial dc planning assessment. CM educated patient on the CM role and verbal consent given by patient to complete assessment. Patient lives at home with her spouse where she is independent with her care. At discharge patient plans to return home and feels this is a safe discharge. Her sister Franny will be her telephone directory distributor driver home. CM discussed availability of home health, rehab services, and medical equipment. She is current with [facility] in [place]. I called to let them know that she will be discharging with IV abx and will need to be start of care on THU. I spoke with Ila. Patient has a wheelchair and a shower chair at home. IDANIA signed. Patient denied known discharge needs at this time. CM will continue to follow and will assist as needed with dc plans/needs. Cell Operator: Jyoti Hernandez DCPIA - Discharge Planning Initial Assessment Updated by [email or web address]: Jyoti Hernandez on 05/14/20 2:19 pm * Is the patient Alert and Oriented? Yes * How many steps to enter\exit or inside your home? * PCP DR FINCK * Pharmacy [facility] * Preadmission Environment Home with Family * ADLs Independent * Equipment Rolling Walker Shower Chair Wheelchair * List name and contact numbers for known caregivers / representatives who currently or will assist patient after discharge: WILSON ( SPOUSE ) [phone] FRANNY FRANCO ( SISTER) [phone] * Verbal permission to speak to the caregivers and representatives has been obtained from the patient. N/A * Community resources currently utilized Home Health * Please name any agencies selected above. [employer] [facility] [place] * Additional services required to return to the preadmission environment? Yes * Can the patient safely return to the preadmission environment? Yes * Has this patient been hospitalized within the prior 30 days at any hospital? No Coverage Notice Reviewer: [id number] Florentino Hernandez Notice Issued Date-Time: 05/14/2020 14:10 Notice Type: Patient Choice Letter Notice Delivered To: Patient Relationship to Patient: Matrix Plater Name: Delivery Method: HAND - Hand Delivered Aneta Days: Prior Verbal Notification: Recipient Understood Notice: Yes Recipient Signature: Yes Med Rec Note Co-signed by Attending: Coverage Notice Comment: current with [facility] Reviewer: [id number] Florentino Hernandez Notice Issued Date-Time: 05/15/2020 8:50 Notice Type: IM Discharge Notice Notice Delivered To: Patient Relationship to Patient: Matrix Plater Name: Delivery Method: HAND - Hand Delivered Aneta Days: Prior Verbal Notification: Recipient Understood Notice: Yes Recipient Signature: Yes Med Rec Note Co-signed by Attending: Coverage Notice Comment: IMM SERVED Last DP export: 05/15/20 2:11 Patient Name: CATARINO FINN Page [id number] at 0910 All edits/amendments must be made on the electronic document DICTATION DATE: 05/16/20908 WHEEL ADJUSTER: SENIA 05/16/20908 RPT#: [id number] DC DATE:05/15/20 STATUS: DIS IN [facility] [address] [place] [address] END OF REPORT
== END 2020-05-15 17:34 | disposition home health service (06) | DRG 496 ==
LOC: D.MS 17:16
PROVIDERS: Family Medicine; ADMIT Podiatrist Foot & Ankle Surgery; ATTEND Podiatrist Foot & Ankle Surgery
PROC: 0QPR04Z Removal of Internal Fixation Device from Left Toe Phalanx, Open Approach (ICD-10-PCS; principal; 2020-05-12)
DX: T84.69XA Infection and inflammatory reaction due to internal fixation device of other site, initial encounter (principal); M86.9 Osteomyelitis, unspecified; L03.116 Cellulitis of left lower limb; I10 Essential (primary) hypertension; E11.65 Type 2 diabetes mellitus with hyperglycemia; K21.9 Gastro-esophageal reflux disease without esophagitis; E11.42 Type 2 diabetes mellitus with diabetic polyneuropathy; M19.072 Primary osteoarthritis, left ankle and foot; E11.69 Type 2 diabetes mellitus with other specified complication

== ENCOUNTER → 2020-12-17 18:23 | Outpatient (CLI) | payer MEDICARE, MEDICAID ==
[2020-05-12 13:50] VITALS: BMI 28.2
== END | disposition home or self-care (01) ==
LOC: D.LABREF 18:23
PROVIDERS: ATTEND Podiatrist Foot & Ankle Surgery
DX: L03.115 Cellulitis of right lower limb (principal); L03.116 Cellulitis of left lower limb

== ENCOUNTER → 2021-01-02 19:57 | Outpatient (CLI) | payer MEDICARE, MEDICAID ==
[2020-05-12 13:50] VITALS: BMI 28.2
== END | disposition home or self-care (01) ==
LOC: D.LABREF 19:57
PROVIDERS: ATTEND Podiatrist Foot & Ankle Surgery
DX: L03.115 Cellulitis of right lower limb (principal)

== ENCOUNTER 2021-01-17 05:05 | Day surgery (SDC) | payer MEDICARE, MEDICAID ==
[2021-01-16 10:52] LABS: BASOPHILS 0.8 % (0-2); EOSINOPHILS 1.8 % (0-7); HEMATOCRIT 37.5 % (36.0-48.0); HEMOGLOBIN 12.4 g/dL (12-16); LYMPHOCYTES 14.8 % (15-50); MCH 28.3 pg (26.0-34.0); MCHC 33.2 g/dL (31.0-37.0); MCV 85.2 fL (80.0-100.0); MEAN PLATELET VOLUME 7.1 fL (7.4-10.4); NEUTROPHILS 75.6 % (40-80); RDW 12.6 % (11.5-14.5); WBC 11.1 10x3/uL (4.8-10.8)
[2021-01-16 11:00] LABS: ANION GAP 13.4 mmol/L (8-16); CALCIUM 9.8 mg/dL (8.5-10.1); CREATININE - SERUM 1.5 mg/dL (0.6-1.3); POTASSIUM - SERUM 4.4 mmol/L (3.5-5.1)
[2021-01-16 11:03] LABS: PLATELET COUNT 459 10x3/uL (130-400)
[~2021-01-17] VITALS: Ht 165.1 cm; Wt 83.9 kg
[~2021-01-17 05:05] MED LIST changes: +ASCORBIC ACID500 MG; +B12; +CALCIUM; +CELEXA20 MG; +CRESTOR5 MG; +FISH OIL 1,0001 CA1; +LANTUS INS100 UNITS/ SQ; +LYRICA50 MG; +PROTONIX40 MG PO; +TOPROL XL25 MG; +TOZAL SOFTGEL1 EACH; +VIT D; +VITAMIN E PO; +ZIN
[2021-01-17 06:11] VITALS: BP 146/81; Ht 165.1 cm; Wt 83.9 kg
--- NOTE | 2021-01-17 15:33 | NUR ---
1045 IV DC'D. CATHETER TIP INTACT. NO BLEEDING AT SITE. BANDAID APPLIED. DISCHARGE INSTRUCTIONS REVIEWED WITH PT AND HER SISTER. BOTH VOICE UNDERSTANDING OF INSTRUCTIONS.
== END 2021-01-17 10:48 | disposition home or self-care (01) ==
LOC: D.OPS 05:05
PROVIDERS: ATTEND Podiatrist Foot & Ankle Surgery
DX: M86.171 Other acute osteomyelitis, right ankle and foot (principal); M86.672 Other chronic osteomyelitis, left ankle and foot; M20.5X2 Other deformities of toe(s) (acquired), left foot; I10 Essential (primary) hypertension